=== PATIENT | male | born 1980 | race Caucasian/White ===

== ENCOUNTER 2016-05-05 12:44 | Emergency (ER) | payer MEDICAID ==
[2016-05-05 13:00] VITALS: BP 154/95
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
[2016-05-05] MEDS ORDERED: DEXAMETHASONE 10 MG/ML VIAL ONE (13:27)
[2016-05-05] MEDS ORDERED: HYDROcod/ACETAM 5/325 MG TABLET ONE (13:27)
[2016-05-05] MEDS: DEXAMETHASONE 10 MG/ML VIAL PO STA (13:29)
[2016-05-05] MEDS: HYDROcod/ACETAM 5/325 MG TABLET PO STA (13:29)
[2016-05-05 13:34] LABS: RAPID STREP SCREEN REAGENT QC YELLOW (YELLOW)
== END 2016-05-05 13:44 | disposition home or self-care (01) ==
LOC: ED 12:44
DX: B34.9 Viral infection, unspecified (principal); I10 Essential (primary) hypertension; J45.909 Unspecified asthma, uncomplicated; F17.200 Nicotine dependence, unspecified, uncomplicated
CPT/HCPCS: 87070; 87430; 99283

== ENCOUNTER 2016-07-22 20:45 | Emergency (ER) | payer MEDICAID ==
[2016-07-22] MEDS ORDERED: CLINDAMYCIN 150 MG CAPSULE PO STA (21:06)
[2016-07-22] MEDS ORDERED: CLINDAMYCIN 150 MG CAPSULE PO ONE (21:14)
== END 2016-07-22 21:19 | disposition home or self-care (01) ==
DX: A69.1 Other Vincent's infections (principal); I10 Essential (primary) hypertension; F17.200 Nicotine dependence, unspecified, uncomplicated
CPT/HCPCS: 99283; A9270

== ENCOUNTER 2016-10-31 13:19 | Emergency (ER) | payer MEDICAID ==
[2016-10-31 13:25] VITALS: BP 127/81
[2016-10-31] MEDS ORDERED: CLINDAMYCIN 150 MG CAPSULE PO STA (13:33)
[2016-10-31] MEDS ORDERED: traMADol 50 MG TABLET PO STA (13:35)
[2016-10-31] MEDS ORDERED: CLINDAMYCIN 150 MG CAPSULE PO ONE (13:42)
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
== END 2016-10-31 14:00 | disposition home or self-care (01) ==
LOC: ED 13:19
DX: K04.7 Periapical abscess without sinus (principal); K02.9 Dental caries, unspecified; I10 Essential (primary) hypertension; F17.200 Nicotine dependence, unspecified, uncomplicated; Z59.0 Homelessness
CPT/HCPCS: 99283; A9270

== ENCOUNTER 2016-11-14 13:46 | Outpatient (CLI) | payer MEDICAID | END 2016-11-14 13:47 | disposition critical access hospital (66) | LOC: EMS 13:46 | PROVIDERS: ATTEND Surgery | DX: R11.0 Nausea (principal) | CPT/HCPCS: A0425; A0427 ==

== ENCOUNTER 2016-11-14 14:14 | Emergency (ER) | payer MEDICAID ==
[2016-11-14] MEDS ORDERED: amLODIPine 5 MG TABLET PO STA (14:30)
[2016-11-14] MEDS ORDERED: SODIUM CHLORIDE 0.9% 1,000 ML IV ONE ×2 (14:30→15:02)
[2016-11-14] MEDS ORDERED: amLODIPine 5 MG TABLET ONE (14:32)
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
[2016-11-14] MEDS ORDERED: LORazepam 2 MG/ML SYRINGE IVP STA (15:00)
[2016-11-14] MEDS ORDERED: LORazepam 2 MG/ML SYRINGE ONE (15:03)
[2016-11-14 15:16] LABS: BILIRUBIN,URINE NEGATIVE (NEGATIVE); UA w/ MICROSCOPIC CHARGE YES
[2016-11-14 15:18] LABS: UR CULTURE IF IND NOT INDICATED; WBC,URINE 0-3 /HPF (0-3)
[2016-11-14 15:38] LABS: BASOPHILS # (AUTO) 0.1 10^3/uL (0.0-0.1); BASOPHILS % (AUTO) 1.1 %; EOSINOPHILS % (AUTO) 0.2 %; HCT - HEMATOCRIT 48.6 % (42.0-52.0); HGB - HEMOGLOBIN 16.7 g/dL (14.0-18.0); LYMPHOCYTES # (AUTO) 0.6 10^3/uL (1.5-3.5); MEAN CORPUSCULAR HEMOGLOBIN 34.6 pg (27.0-31.0); MEAN CORPUSCULAR HGB CONC 34.4 g/dL (32.0-36.0); MEAN CORPUSCULAR VOLUME 100.6 fL (80.0-94.0); MEAN PLATELET VOLUME 9.7 fL (7.4-11.4); MONOCYTES # (AUTO) 0.6 10^3/uL (0.0-1.0); NEUTROPHILS # (AUTO) 4.3 10^3/uL (1.5-6.6); NEUTROPHILS % (AUTO) 76.7 %; RED BLOOD COUNT 4.83 10^6/uL (4.70-6.10); RED CELL DISTRIBUTION WIDTH 13.3 % (12.0-15.0); UNCORRECTED WHITE BLOOD COUNT 5.7 x10^3/uL; WHITE BLOOD COUNT 5.7 x10^3/uL (4.8-10.8)
[2016-11-14 15:48] LABS: ALBUMIN/GLOBULIN RATIO 0.9 (1.0-2.2); BILIRUBIN,TOTAL 3.7 mg/dL (0.2-1.0); BUN - BLOOD UREA NITROGEN 5 mg/dL (6-20); CALCIUM 9.1 mg/dL (8.5-10.3); CARBON DIOXIDE - CO2 25 mmol/L (21-32); CHLORIDE 100 mmol/L (101-111); CREATININE 0.5 mg/dL (0.6-1.2); GFR - MDRD 190 (>89); GLUCOSE 120 mg/dL (70-100); LIPASE 77 U/L (22-51); POTASSIUM 3.6 mmol/L (3.5-5.0); SALICYLATE < 6.0 mg/dL; SODIUM 138 mmol/L (135-145); TOTAL PROTEIN 7.6 g/dL (6.7-8.2)
[2016-11-14 16:03] LABS: ACETAMINOPHEN < 10 ug/mL (10-30)
[2016-11-14 16:19] VITALS: BP 166/91
== END 2016-11-14 16:33 | disposition home or self-care (01) ==
LOC: EDUNIT# → ED 14:14
DX: F41.9 Anxiety disorder, unspecified (principal); E86.0 Dehydration; I10 Essential (primary) hypertension; I38 Endocarditis, valve unspecified; F17.200 Nicotine dependence, unspecified, uncomplicated; I49.3 Ventricular premature depolarization; I45.81 Long QT syndrome
CPT/HCPCS: 36415; 80053; 80306; 80307; 80320; 80329; 81001; 83690; 85025; 93005; 96361; 96374; 99284; A9270; J2060; 81003; 87086

== ENCOUNTER 2016-11-16 20:09 | Outpatient (CLI) | payer MEDICAID | END 2016-11-16 20:10 | disposition critical access hospital (66) | LOC: EMS 20:09 | PROVIDERS: ATTEND Surgery | DX: R56.9 Unspecified convulsions (principal) | CPT/HCPCS: A0425; A0427 ==

== ENCOUNTER 2016-11-16 20:31 | Emergency (ER) | payer MEDICAID ==
[2016-11-16 21:15] LABS: BASOPHILS # (AUTO) 0.1 10^3/uL (0.0-0.1); BASOPHILS % (AUTO) 0.9 %; EOSINOPHILS # (AUTO) 0.1 10^3/uL (0.0-0.7); EOSINOPHILS % (AUTO) 0.8 %; HCT - HEMATOCRIT 44.2 % (42.0-52.0); HGB - HEMOGLOBIN 15.2 g/dL (14.0-18.0); LYMPHOCYTES # (AUTO) 1.1 10^3/uL (1.5-3.5); LYMPHOCYTES % (AUTO) 15.7 %; MEAN CORPUSCULAR HEMOGLOBIN 34.9 pg (27.0-31.0); MEAN CORPUSCULAR HGB CONC 34.4 g/dL (32.0-36.0); MEAN CORPUSCULAR VOLUME 101.4 fL (80.0-94.0); MEAN PLATELET VOLUME 10.2 fL (7.4-11.4); MONOCYTES # (AUTO) 0.8 10^3/uL (0.0-1.0); MONOCYTES % (AUTO) 11.4 %; NEUTROPHILS # (AUTO) 4.9 10^3/uL (1.5-6.6); NEUTROPHILS % (AUTO) 71.2 %; NUCLEATED RED BLOOD CELLS AUTO 0.1 /100WBC; RED BLOOD COUNT 4.36 10^6/uL (4.70-6.10); RED CELL DISTRIBUTION WIDTH 13.4 % (12.0-15.0); UNCORRECTED WHITE BLOOD COUNT 6.9 x10^3/uL; WHITE BLOOD COUNT 6.9 x10^3/uL (4.8-10.8)
[2016-11-16] MEDS ORDERED: SODIUM CHLORIDE 0.9% 1,000 ML IV ONE (21:29)
[2016-11-16 21:48] LABS: ALBUMIN/GLOBULIN RATIO 0.9 (1.0-2.2); BILIRUBIN,TOTAL 3.3 mg/dL (0.2-1.0); CALCIUM 8.3 mg/dL (8.5-10.3); CREATININE 0.6 mg/dL (0.6-1.2); PHOSPHORUS 3.2 mg/dL (2.5-4.6); POTASSIUM 3.2 mmol/L (3.5-5.0); TOTAL PROTEIN 6.8 g/dL (6.7-8.2)
[2016-11-16] MEDS ORDERED: MAGNESIUM SULFATE 2 GRAM 50 ML IV ONE ×2 (21:54→22:18)
--- NOTE | 2016-11-16 22:12 | CT Preliminary Report ---
Exam: CT Head W/O IMPRESSION: 1. No CT evidence of acute intracranial abnormality, specifically no CT evidence of acute infarct, in tracranial hemorrhage, mass effect, midline shift, or hydrocephalus. 2. Right parietal scalp soft tissue hematoma with no underlying fracture. [facility] SITE ID: [id number]
--- NOTE | 2016-11-16 22:14 | CT Report ---
EXAM: CT HEAD EXAM DATE: 11/16/2016 09:44 PM. CLINICAL HISTORY: Fall, seizure post fall. COMPARISON: None. TECHNIQUE: Multiaxial CT images were obtained from the foramen magnum to the vertex. IV contrast: Non e. Reformats: Coronal. In accordance with CT protocol optimization, one or more of the following dose reduction techniques w ere utilized for this exam: automated exposure control, adjustment of mA and/or KV based on patient s ize, or use of iterative reconstructive technique. FINDINGS: Parenchyma: No intraparenchymal hemorrhage. No evidence of mass, midline shift, or CT findings of inf arction. Littlejohn-white differentiation is distinct. Extraaxial Spaces: Normal for age. No subdural or epidural collections identified. Ventricles: Normal in size and position. Sinuses: Moderate mucosal thickening left maxillary sinus. Imaged paranasal sinuses otherwise, orbits , and mastoids show no significant abnormality. Bones: No evidence of fracture or calvarial defect. Other: Right parietal scalp soft tissue hematoma with no underlying fracture. IMPRESSION: 1. No CT evidence of acute intracranial abnormality, specifically no CT evidence of acute infarct, in tracranial hemorrhage, mass effect, midline shift, or hydrocephalus. 2. Right parietal scalp soft tissue hematoma with no underlying fracture. [facility] Referring Provider Line: [phone] SITE ID: [id number]
[2016-11-16 23:05] VITALS: BP 149/79
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
== END 2016-11-16 23:21 | disposition left against medical advice (07) ==
LOC: EDUNIT# → ED 20:31
DX: R55 Syncope and collapse (principal); Z53.29 Procedure and treatment not carried out because of patient's decision for other reasons; I45.19 Other right bundle-branch block; R94.31 Abnormal electrocardiogram [ECG] [EKG]; I10 Essential (primary) hypertension; I38 Endocarditis, valve unspecified; J45.909 Unspecified asthma, uncomplicated; F17.200 Nicotine dependence, unspecified, uncomplicated
CPT/HCPCS: 36415; 70450; 80053; 83690; 83735; 83880; 84100; 84484; 85025; 93005; 96374; 99283; 99285

== ENCOUNTER 2016-11-17 01:17 | Outpatient (CLI) | payer MEDICAID | END 2016-11-17 01:18 | disposition critical access hospital (66) | LOC: EMS 01:17 | PROVIDERS: ATTEND Surgery | DX: R56.9 Unspecified convulsions (principal) | CPT/HCPCS: A0425; A0429 ==

== ENCOUNTER 2016-11-17 01:47 | Inpatient (IN) | payer MEDICAID ==
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
[2016-11-17] MEDS ORDERED: ACETAMINOPHEN 325 MG TABLET PO PRN (02:30)
[2016-11-17] MEDS ORDERED: HYDROcod/ACETAM 5/325 MG TABLET PO PRN (02:30)
[2016-11-17] MEDS ORDERED: HYDROcod/ACETAM 10 MG/325 MG TABLET PO PRN (02:30)
[2016-11-17] MEDS ORDERED: ONDANSETRON 4 MG/2 ML VIAL IVP PRN (02:30)
[2016-11-17] MEDS ORDERED: PROCHLORPERAZINE 10 MG/2 ML VIAL IVP PRN (02:30)
[2016-11-17] MEDS ORDERED: MAGNESIUM SULFATE 2 GRAM 50 ML IV SCH (03:30)
[2016-11-17] MEDS: levETIRAcetam 250 MG TABLET PO SCH ×2 (04:06→10:23)
[2016-11-17] MEDS: SODIUM CHLORIDE FLUSH 0.9% 10 ML SYRINGE IVP PRN ×2 (04:07→11:03)
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
[2016-11-17] MEDS ORDERED: PANTOPRAZOLE 40 MG TABLET PO SCH (07:00)
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
--- NOTE | 2016-11-17 08:59 | Ultrasound Preliminary Report ---
Exam: US Abdomen Complete IMPRESSION: 1. Limited exam due to patient agitation. 2. Echogenic liver may indicate fatty infiltration or intrinsic liver disease. 3. No other gross abnormality identified. [facility] SITE ID: [id number]
--- NOTE | 2016-11-17 09:01 | Ultrasound Report ---
EXAM: ABDOMEN ULTRASOUND EXAM DATE: 11/17/2016 07:44 AM. CLINICAL HISTORY: Elevated bili history of liver disease . COMPARISON: Abdominal ultrasound dated 12/14/2015. TECHNIQUE: Real-time scanning was performed with static images obtained. FINDINGS: Technically limited exam due to patient agitation. Liver: Appears echogenic. It measures 16.5 cm in length. Main portal vein flow: Hepatopetal. Gallbladder: Mildly contracted. Wall thickness measures 2.8 mm. No stones or sonographic Mirza's sig n. Biliary System: Common bile duct measures 4.1 mm. No intrahepatic or extrahepatic ductal dilatation. Pancreas: Not well seen. Kidneys: Right: 11.2 cm longitudinally. No gross abnormality identified. Left: 12.2 cm longitudinally. Very limited imaging due to patient agitation. No gross abnormality dimple ntified. Spleen: 11.2 cm. Very limited imaging due to patient agitation. No gross abnormality identified. Aorta: Unremarkable. IMPRESSION: 1. Limited exam due to patient agitation. 2. Echogenic liver may indicate fatty infiltration or intrinsic liver disease. 3. No other gross abnormality identified. [facility] Referring Provider Line: [phone] SITE ID: [id number]
[2016-11-17] MEDS: amLODIPine 5 MG TABLET PO SCH (10:24)
[2016-11-17 10:26] LABS: BASOPHILS % (AUTO) 0.7 %; EOSINOPHILS # (AUTO) 0.1 10^3/uL (0.0-0.7); EOSINOPHILS % (AUTO) 1.6 %; HCT - HEMATOCRIT 42.6 % (42.0-52.0); HGB - HEMOGLOBIN 14.6 g/dL (14.0-18.0); LYMPHOCYTES # (AUTO) 1.1 10^3/uL (1.5-3.5); LYMPHOCYTES % (AUTO) 24.5 %; MEAN CORPUSCULAR HEMOGLOBIN 34.7 pg (27.0-31.0); MEAN CORPUSCULAR HGB CONC 34.2 g/dL (32.0-36.0); MEAN CORPUSCULAR VOLUME 101.3 fL (80.0-94.0); MONOCYTES # (AUTO) 0.6 10^3/uL (0.0-1.0); MONOCYTES % (AUTO) 13.7 %; NEUTROPHILS # (AUTO) 2.6 10^3/uL (1.5-6.6); NEUTROPHILS % (AUTO) 59.5 %; RED CELL DISTRIBUTION WIDTH 13.3 % (12.0-15.0); UNCORRECTED WHITE BLOOD COUNT 4.4 x10^3/uL; WHITE BLOOD COUNT 4.4 x10^3/uL (4.8-10.8)
[2016-11-17] MEDS: POLYETHYLENE GLYCOL 3350 17 GM PACKET PO SCH (10:27)
[2016-11-17 10:32] LABS: INR 1.2 (0.8-1.2); PT - PROTHROMBIN TIME 13.3 secs (9.9-12.6)
[2016-11-17 10:35] LABS: ALBUMIN/GLOBULIN RATIO 0.8 (1.0-2.2); BILIRUBIN,TOTAL 3.3 mg/dL (0.2-1.0); CALCIUM 8.4 mg/dL (8.5-10.3); CREATININE 0.5 mg/dL (0.6-1.2); MAGNESIUM 1.7 mg/dL (1.7-2.8); PHOSPHORUS 3.6 mg/dL (2.5-4.6); POTASSIUM 3.1 mmol/L (3.5-5.0); TOTAL PROTEIN 6.3 g/dL (6.7-8.2)
[2016-11-17] MEDS ORDERED: LORazepam 2 MG/ML SYRINGE IVP PRN ×2 (10:43→18:12)
[2016-11-17 10:44] LABS: IRON 137 ug/dL (45-182); TOTAL IRON BINDING CAPACITY 259 ug/dL (250-450); TRANSFERRIN 185 mg/dL (180-329)
[2016-11-17] MEDS: METOPROLOL TARTRATE 25 MG TABLET PO SCH (10:57)
[2016-11-17] MEDS: LORazepam 2 MG/ML SYRINGE IVP PRN ×10 (10:58→19:36)
[2016-11-17 11:01] LABS: FOLATE 9.68 ng/mL (5.90 - >24.8)
[2016-11-17] MEDS: SODIUM CHLORIDE FLUSH 0.9% 10 ML SYRINGE IVP SCH ×3 (11:27→23:03)
[2016-11-17] MEDS ORDERED: POTASSIUM CHLORIDE 20 MEQ/15 ML UDC PO SCH (12:00)
[2016-11-17] MEDS: MULTIVITAMIN 10 ML, THIAMINE INJ 100 MG, FOLIC ACID INJ 1 MG in SODIUM CHLORIDE 0.9% 1,... IV SCH (12:44)
--- NOTE | 2016-11-17 13:19 | MRI Preliminary Report ---
Exam: MRI Brain W/O Impression: 1. Motion limited study. 2. However, no acute intracranial pathology is demonstrated. In particular, there is no evidence of i nfarction, hemorrhage or space-occupying mass lesion. 3. In addition, no obvious, epileptogenic focus has been identified on this brain MRI. SITE ID: [id number]
--- NOTE | 2016-11-17 13:35 | MRI Report ---
MRI BRAIN WITHOUT CONTRAST INDICATION: 36-year-old male with new onset seizures. Please assess. TECHNIQUE: 1. T1 sagittal. 2. STIR and T2 FLAIR coronal. 3. Axial T1 MP RAGE, FLAIR, T2, T2* and DWI. Comparison: Head CT 11/16/2016. FINDINGS: The patient was not able to hold still for this examination. There is image degradation from patient motion on most sequences. This decreases the diagnostic quality of the study. Again demonstrated, is generalized prominence of the cerebral cortical sulci, unchanged. There is mil d prominence of the third and lateral ventricles, stable. There is no discordance between the degree of ventriculomegaly and the amount of cortical sulcal dilatation to suggest the possibility of hydroc ephalus. The axial and coronal T2 FLAIR sequences are degraded by patient motion. Grossly, signal intensity of cortex and white matter appears normal. The coronal STIR sequence is also degraded by patient motion. However, by visual inspection, grossly the hippocampi appear symmetric in size. Hippocampal architecture is not well assessed on the sequenc es provided, however, no abnormal FLAIR hyperintensity is identified in either hippocampus to suggest the presence of gliosis. Therefore, no imaging findings concerning for mesial temporal sclerosis. No evidence of focal cortical dysplasia or keenan matter heterotopia on the T1 MP RAGE axial sequence. There appear to be flow voids for the main intracranial arteries. The DWI sequence is of relatively g ood, diagnostic quality. No abnormal diffusion restriction is demonstrated. No evidence of acute or chronic hemorrhage on T2* GRE sequence. No abnormal extra-axial fluid collection. No mass-effect or midline shift. Limited assessment of the pituitary and parasellar region reveals no obvious pathology. In particular , no evidence of hypothalamic mass lesion. Very limited assessment of the orbits reveals no gross pathology. There is circumferential mucosal thickening in the left maxillary sinus with a prominent air-fluid le ifeoma. Mucosal thickening is seen scattered throughout the ethmoid air cells. Grossly, the paranasal si nuses are otherwise clear. Marrow signal intensity in the regional skeletal structures is unremarkable. IMPRESSION: 1. Motion-limited study. 2. However, no acute intracranial pathology is demonstrated. In particular, there is no evidence of i nfarction, hemorrhage or space-occupying mass lesion. 3. In addition, no obvious, epileptogenic focus has been identified on this unenhanced brain MRI. Referring Provider Line: [phone] SITE ID: [id number]
[2016-11-17] MEDS: NICOTINE 21 MG PATCH TOP SCH (13:52)
[2016-11-17] MEDS: POTASSIUM CHLORIDE 20 MEQ/15 ML UDC PO SCH (14:06)
[2016-11-17] MEDS ORDERED: MAGNESIUM SULFATE 2 GRAM 50 ML IV ONE (19:01)
[2016-11-17] MEDS ORDERED: HALOPERIDOL 5 MG/ML VIAL IM ONE (19:01)
[2016-11-17] MEDS ORDERED: diphenhydrAMINE INJ 50 MG/ML VIAL IVP PRN (19:03)
[2016-11-17] MEDS ORDERED: PROMETHAZINE INJ 25 MG in SODIUM CHLORIDE 0.9% 50 ML IV PRN (19:04)
[2016-11-17] MEDS ORDERED: HALOPERIDOL 5 MG/ML VIAL IM SCH (19:22)
[2016-11-17] MEDS ORDERED: SODIUM CHLORIDE 0.9% 1,000 ML IV ONE (20:01)
[2016-11-17] MEDS ORDERED: LORazepam 2 MG/ML SYRINGE IVP STA ×2 (20:02→20:06)
[2016-11-17] MEDS: DEXMEDETOMIDINE 400 MCG/100 ML 100 ML IV PRN (20:15)
[2016-11-17] MEDS ORDERED: HALOPERIDOL 5 MG/ML VIAL IM STA (20:17)
[2016-11-17] MEDS ORDERED: LORazepam 100MG/100ML 100 ML IV SCH (21:00)
[2016-11-17] MEDS ORDERED: SODIUM CHLORIDE 0.9% 1,000 ML IV SCH (23:00)
[2016-11-17] MEDS: NS W/20 MEQ KCL 1,000 ML IV SCH (23:02)
[2016-11-18] MEDS: HALOPERIDOL 5 MG/ML VIAL IM SCH ×2 (00:36→05:11)
[2016-11-18] MEDS ORDERED: HALOPERIDOL 5 MG/ML VIAL IM SCH (05:06)
[2016-11-18] MEDS: LORazepam 2 MG/ML SYRINGE IVP PRN ×5 (05:10→23:11)
[2016-11-18] MEDS ORDERED: LORazepam 2 MG/ML SYRINGE IVP STA (05:36)
[2016-11-18] MEDS: SODIUM CHLORIDE FLUSH 0.9% 10 ML SYRINGE IVP SCH ×3 (06:04→21:52)
[2016-11-18] MEDS: PANTOPRAZOLE 40 MG VIAL IVP SCH (06:04)
[2016-11-18] MEDS: DEXMEDETOMIDINE 400 MCG/100 ML 100 ML IV PRN ×4 (06:20→22:11)
[2016-11-18] MEDS ORDERED: LORazepam 2 MG/ML SYRINGE IVP SCH (06:27)
[2016-11-18] MEDS: NS W/20 MEQ KCL 1,000 ML IV SCH (07:03)
[2016-11-18 08:03] LABS: BASOPHILS % (AUTO) 0.5 %; EOSINOPHILS # (AUTO) 0.1 10^3/uL (0.0-0.7); EOSINOPHILS % (AUTO) 1.4 %; HCT - HEMATOCRIT 41.6 % (42.0-52.0); HGB - HEMOGLOBIN 14.3 g/dL (14.0-18.0); LYMPHOCYTES # (AUTO) 0.7 10^3/uL (1.5-3.5); LYMPHOCYTES % (AUTO) 15.5 %; MEAN CORPUSCULAR HEMOGLOBIN 34.8 pg (27.0-31.0); MEAN CORPUSCULAR HGB CONC 34.4 g/dL (32.0-36.0); MEAN CORPUSCULAR VOLUME 101.3 fL (80.0-94.0); MEAN PLATELET VOLUME 9.5 fL (7.4-11.4); MONOCYTES # (AUTO) 0.4 10^3/uL (0.0-1.0); MONOCYTES % (AUTO) 8.1 %; NEUTROPHILS # (AUTO) 3.5 10^3/uL (1.5-6.6); NEUTROPHILS % (AUTO) 74.5 %; NUCLEATED RED BLOOD CELLS AUTO 0.1 /100WBC; RED BLOOD COUNT 4.11 10^6/uL (4.70-6.10); RED CELL DISTRIBUTION WIDTH 13.2 % (12.0-15.0); UNCORRECTED WHITE BLOOD COUNT 4.7 x10^3/uL; WHITE BLOOD COUNT 4.7 x10^3/uL (4.8-10.8)
[2016-11-18 08:14] LABS: INR 1.2 (0.8-1.2)
[2016-11-18 08:21] LABS: ALBUMIN/GLOBULIN RATIO 0.8 (1.0-2.2); BILIRUBIN,TOTAL 2.3 mg/dL (0.2-1.0); CALCIUM 8.5 mg/dL (8.5-10.3); CREATININE 0.4 mg/dL (0.6-1.2); MAGNESIUM 1.4 mg/dL (1.7-2.8); POTASSIUM 3.3 mmol/L (3.5-5.0); TOTAL PROTEIN 6.2 g/dL (6.7-8.2)
[2016-11-18] MEDS: POTASSIUM CHLORIDE 20 MEQ/15 ML UDC PO SCH (08:46)
[2016-11-18] MEDS: ENOXAPARIN 30 MG/0.3 ML SYRINGE SUBQ SCH (09:10)
[2016-11-18] MEDS: NICOTINE 21 MG PATCH TOP SCH (09:12)
[2016-11-18] MEDS: amLODIPine 5 MG TABLET PO SCH (09:15)
[2016-11-18] MEDS: METOPROLOL TARTRATE 25 MG TABLET PO SCH (09:15)
[2016-11-18] MEDS: levETIRAcetam INJ 500 MG in SODIUM CHLORIDE 0.9% 100ML 100 ML IV SCH ×2 (09:17→21:48)
[2016-11-18] MEDS: MULTIVITAMIN 10 ML, THIAMINE INJ 100 MG, FOLIC ACID INJ 1 MG in SODIUM CHLORIDE 0.9% 1,... IV SCH (09:32)
[2016-11-18] MEDS: POLYETHYLENE GLYCOL 3350 17 GM PACKET PO SCH (09:46)
[2016-11-18] MEDS: SODIUM CHLORIDE FLUSH 0.9% 10 ML SYRINGE IVP PRN ×2 (09:54→18:22)
--- NOTE | 2016-11-18 12:01 | PROVIDER PROGRESS NOTE ---
Subjective - Prog Note Date Prog Note Date: 11/18/16 Prog Note Time: 12:01 - Subjective Subjective: yesterday he became increasingly angry and agitated. he wanted IV off to go to bathroom. wanted to leave room to smoke. 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 but by evening, he was screaming, hitting, and very unstable on his feet as he attempted to ambulate. CIWA score mid 20's. Needed haldol x2 then precedex drip so is in ICU since yesterday evening. overnight is has been stable vitals except for high BP. This morning he is now on my service from the [employer] [facility]. Current Medications - Current Medications Current Medications: Active Medications Acetaminophen (Tylenol) 650 mg PO Q4HR PRN PRN Reason: Pain 1 to 4 Last Admin: 11/17/16 12:34 Dose: 650 mg Acetaminophen/Hydrocodone Bitart (Howard 5/325) 1 tab PO Q4HR PRN PRN Reason: Pain 5 to 7 Last Admin: 11/17/16 13:52 Dose: 1 tab Acetaminophen/Hydrocodone Bitart (Howard 10 Mg/325 Mg) 1 tab PO Q4HR PRN PRN Reason: Pain 8 to 10 Amlodipine Besylate (Norvasc) 10 mg PO DAILY [facility] Last Admin: 11/18/16 09:15 Dose: Not Given Diphenhydramine HCl (Benadryl Inj) 25 mg IVP Q6H PRN PRN Reason: Allergy Symptoms Enoxaparin Sodium (Lovenox) 30 mg SUBQ DAILY [facility] Last Admin: 11/18/16 09:10 Dose: 30 mg Hydralazine HCl (Apresoline Inj) 10 mg IVP TID [facility] Multivitamins 10 ml/ Thiamine HCl 100 mg/ Folic Acid 1 mg/Sodium Chloride 1, 011.2 mls @ 100 mls/hr IV DAILY [facility] Last Admin: 11/18/16 09:32 Dose: 100 mls/hr Promethazine HCl 25 mg/ Sodium (Chloride) 51 mls @ 100 mls/hr IV Q6H PRN PRN Reason: Nausea / Vomiting Dexmedetomidine/Sodium Chloride (Precedex Premix) 100 mls @ 5.963 mls/hr IV .[id number] PRN; Protocol; 0.3 MCG/KG/HR PRN Reason: Agitation Last Admin: 11/18/16 06:20 Dose: 15.9 mls/hr Levetiracetam 500 mg/ Sodium (Chloride) 105 mls @ 400 mls/hr IV BID [facility] Last Admin: 11/18/16 09:17 Dose: 400 mls/hr Potassium Chloride/Sodium Chloride (Normal Saline 0.9% W/20 Meq Kcl) 1,000 mls @ 125 mls/hr IV .Q8H [facility] Last Admin: 11/18/16 07:03 Dose: 125 mls/hr Lorazepam (Ativan Inj) 1 mg IVP Q30M PRN; Protocol PRN Reason: CIWA > 8 Last Admin: 11/18/16 06:07 Dose: 1 mg Lorazepam (Ativan Inj) 0.5 mg IVP Q2HR PRN PRN Reason: Anxiety Lorazepam (Ativan Inj) 0.5 mg IVP Q2HR PRN PRN Reason: Anxiety Metoprolol Tartrate (Lopressor) 25 mg PO DAILY [facility] Last Admin: 11/18/16 09:15 Dose: Not Given Nicotine (Nicoderm) 1 patch TOP DAILY [facility] Last Admin: 11/18/16 09:12 Dose: 1 patch Ondansetron HCl (Zofran Inj) 4 mg IVP Q6HR PRN PRN Reason: Nausea / Vomiting Pantoprazole Sodium (Protonix) 40 mg IVP QDAC [facility] Last Admin: 11/18/16 06:04 Dose: 40 mg Polyethylene Glycol (Miralax) 17 gm PO DAILY [facility] Last Admin: 11/18/16 09:46 Dose: Not Given Potassium Chloride () 20 meq PO DAILYWM [facility] Last Admin: 11/18/16 08:46 Dose: Not Given Prochlorperazine Edisylate (Compazine Inj) 10 mg IVP Q6HR PRN PRN Reason: Nausea / Vomiting Sodium Chloride (Normal Saline Flush 0.9%) 10 ml IVP PRN PRN PRN Reason: NEEDED PER PROVIDER ORDERS Last Admin: 11/18/16 09:54 Dose: 10 ml Sodium Chloride (Normal Saline Flush 0.9%) 10 ml IVP Q8HR [facility] Last Admin: 11/18/16 06:04 Dose: 10 ml Metoprolol Tartrate 25 mg PO DAILY 10/31/16 Omeprazole 20 mg PO DAILY 10/31/16 Objective - Vital Signs/Intake & Output Reviewed Vital Signs: Yes Vital Signs: Vital Signs Pulse Resp BP Pulse Ox 11/18/16 11:00 67 19 161/102 H 93 11/18/16 10:00 60 21 161/99 H 94 11/18/16 08:59 62 22 160/98 H 94 Intake & Output: Intake & Output 11/15/16 11/16/16 11/17/16 11/18/16 23:59 23:59 23:59 23:59 Intake Total 1044 1880 Output Total 1400 2090 Balance -356 -210 - Objective General Appearance: positive: No acute distress, Other (sedated. hilliard faced, dishelveled sparse dutta mustache white male with poor poor dentition) Eyes Bilateral: positive: PERRL Neck: positive: No JVD, Lymphadenopathy (R) (shotty), Lymphadenopathy (L) ( shotty). negative: Stiff neck Respiratory: positive: Chest non-tender. negative: Wheezes, Rales, Rhonchi Cardiovascular: positive: Regular rate & rhythm, No murmur, Gallop/S4, Friction rub Abdomen: positive: Non-tender, No organomegaly, Nml bowel sounds, No distention Skin: positive: Warm, Dry Extremities: positive: Full ROM (passive), No pedal edema. negative: Joint swelling Neurologic/Psychiatric: positive: Other (precedex drip, toes downgoing and does withdraw feet with stimulation of soles) - Lab Results Fish Bones: 11/18/16 07:57 11/18/16 07:57 Other Labs: Lab Results x24hrs 11/18/16 11/18/16 11/18/16 Range/Units 07:57 07:57 07:57 WBC 4.7 L (4.8-10.8) x10^3/uL RBC 4.11 L (4.70-6.10) 10^6/uL Hgb 14.3 (14.0-18.0) g/dL Hct 41.6 L (42.0-52.0) % MCV 101.3 H (80.0-94.0) fL MCH 34.8 H (27.0-31.0) pg MCHC 34.4 (32.0-36.0) g/dL RDW 13.2 (12.0-15.0) % Plt Count 98 L (130-450) 10^3/uL MPV 9.5 (7.4-11.4) fL Neut # 3.5 (1.5-6.6) 10^3/uL Lymph # 0.7 L (1.5-3.5) 10^3/uL Millard # 0.4 (0.0-1.0) 10^3/uL Eos # 0.1 (0.0-0.7) 10^3/uL Baso # 0.0 (0.0-0.1) 10^3/uL Absolute Nucleated RBC 0.00 x10^3/uL Nucleated RBCs 0.1 /100WBC PT 14.0 H (9.9-12.6) secs INR 1.2 (0.8-1.2) Sodium 136 (135-145) mmol/L Potassium 3.3 L (3.5-5.0) mmol/L Chloride 105 (101-111) mmol/L Carbon Dioxide 23 (21-32) mmol/L Anion Gap 8.0 (6-13) BUN 5 L (6-20) mg/dL Creatinine 0.4 L (0.6-1.2) mg/dL Estimated GFR (MDRD) 246 (>89) Glucose 122 H (70-100) mg/dL Calcium 8.5 (8.5-10.3) mg/dL Phosphorus 4.0 (2.5-4.6) mg/dL Magnesium 1.4 L (1.7-2.8) mg/dL Total Bilirubin 2.3 H (0.2-1.0) mg/dL AST 536 H (10-42) IU/L ALT 99 H (10-60) IU/L Alkaline Phosphatase 102 (42-121) IU/L Total Creatine Kinase (22-269) IU/L Total Protein 6.2 L (6.7-8.2) g/dL Albumin 2.8 L (3.2-5.5) g/dL Globulin 3.4 (2.1-4.2) g/dL Albumin/Globulin Ratio 0.8 L (1.0-2.2) Urine Opiates Screen (NEGATIVE) Ur Oxycodone Screen (NEGATIVE) Urine Methadone Screen (NEGATIVE) Ur Propoxyphene Screen (NEGATIVE) Ur Barbiturates Screen (NEGATIVE) Ur Tricyclics Screen (NEGATIVE) Ur Phencyclidine Scrn (NEGATIVE) Ur Amphetamine Screen (NEGATIVE) U Methamphetamines Scrn (NEGATIVE) U Benzodiazepines Scrn (NEGATIVE) Urine Cocaine Screen (NEGATIVE) U Cannabinoids Screen (NEGATIVE) 11/17/16 11/17/16 Range/Units 21:25 18:30 WBC (4.8-10.8) x10^3/uL RBC (4.70-6.10) 10^6/uL Hgb (14.0-18.0) g/dL Hct (42.0-52.0) % MCV (80.0-94.0) fL MCH (27.0-31.0) pg MCHC (32.0-36.0) g/dL RDW (12.0-15.0) % Plt Count (130-450) 10^3/uL MPV (7.4-11.4) fL Neut # (1.5-6.6) 10^3/uL Lymph # (1.5-3.5) 10^3/uL Millard # (0.0-1.0) 10^3/uL Eos # (0.0-0.7) 10^3/uL Baso # (0.0-0.1) 10^3/uL Absolute Nucleated RBC x10^3/uL Nucleated RBCs /100WBC PT (9.9-12.6) secs INR (0.8-1.2) Sodium (135-145) mmol/L Potassium (3.5-5.0) mmol/L Chloride (101-111) mmol/L Carbon Dioxide (21-32) mmol/L Anion Gap (6-13) BUN (6-20) mg/dL Creatinine (0.6-1.2) mg/dL Estimated GFR (MDRD) (>89) Glucose (70-100) mg/dL Calcium (8.5-10.3) mg/dL Phosphorus (2.5-4.6) mg/dL Magnesium (1.7-2.8) mg/dL Total Bilirubin (0.2-1.0) mg/dL AST (10-42) IU/L ALT (10-60) IU/L Alkaline Phosphatase (42-121) IU/L Total Creatine Kinase 569 H (22-269) IU/L Total Protein (6.7-8.2) g/dL Albumin (3.2-5.5) g/dL Globulin (2.1-4.2) g/dL Albumin/Globulin Ratio (1.0-2.2) Urine Opiates Screen POSITIVE H (NEGATIVE) Ur Oxycodone Screen NEGATIVE (NEGATIVE) Urine Methadone Screen NEGATIVE (NEGATIVE) Ur Propoxyphene Screen NEGATIVE (NEGATIVE) Ur Barbiturates Screen NEGATIVE (NEGATIVE) Ur Tricyclics Screen NEGATIVE (NEGATIVE) Ur Phencyclidine Scrn NEGATIVE (NEGATIVE) Ur Amphetamine Screen NEGATIVE (NEGATIVE) U Methamphetamines Scrn NEGATIVE (NEGATIVE) U Benzodiazepines Scrn POSITIVE H (NEGATIVE) Urine Cocaine Screen NEGATIVE (NEGATIVE) U Cannabinoids Screen POSITIVE H (NEGATIVE) Assessment/Plan - Problem List (1) Severe alcohol withdrawal delirium Impression: presented as 2 seizures, left AMA from ER, returned postictal from 3rd seizure. thought to be from head trauma but is alcohol abuser and is cutting back on alcohol CT head neg 11/17, MRI head negative 11/17 last night more and more agitated as above. placed in ICU Today Day #2 ICU. continue banana bags, , CIWA, precedex, ativan for 24 more hours then lighten dose to see how he does (2) Seizure due to alcohol withdrawal Impression: on [facility] IV day #2. continue. Qualifiers: Complication of substance-induced condition: with perceptual disturbance Qualified Code(s): F10.232 - Alcohol dependence with withdrawal with perceptual disturbance (3) Electrolyte abnormality Impression: with low potassium, no magnesium, low sodium. continue electrolyte replacement program (4) Alcoholic hepatitis Impression: presented with elevated LFT's and thrombocytopenia US shows fatty liver or cirrhosis, no ascites and no spenomegaly Ferritin is very high but doubt hemachromatosis since hgb is not high hepatitis panel pending Qualifiers: Ascites presence: without ascites Qualified Code(s): K70.10 - Alcoholic hepatitis without ascites (5) Syncope Impression: one episode in midst of seizures, MRI and CT as above. ECHO shows severe RV dysfunction with severe TR. the fact he has RVH makes me think this is more chronic than acute. I am wondering about PE but he was not hypoxic, not hypertensive or hypotensive , not tachycardic with his episodes yesterday. Will start lovenox and get CTA . check carotid US for h/o bruit Qualifiers: Syncope type: unspecified Qualified Code(s): R55 - Syncope and collapse (6) Nicotine dependence, cigarettes, uncomplicated Impression: nicotine patch (7) Hypertension Impression: can't take his oral meds so switch to hydralazine IV prn Qualifiers: Hypertension type: essential hypertension Qualified Code(s): I10 - Essential (primary) hypertension
[2016-11-18] MEDS ORDERED: hydrALAZINE INJ 20 MG/ML VIAL ONE (12:18)
[2016-11-18] MEDS: hydrALAZINE INJ 20 MG/ML VIAL IVP SCH ×4 (12:19→21:34)
[2016-11-18] MEDS ORDERED: MAGNESIUM SULFATE 2 GRAM 50 ML IV ONE (13:40)
--- NOTE | 2016-11-18 14:44 | Ultrasound Preliminary Report ---
Exam: US Carotid Doppler Complete IMPRESSION: No hemodynamically significant stenosis or significant atherosclerotic plaque within the right carotid. Antegrade right vertebral artery. Patient declined imaging of the left carotid. Validated velocity measurements with angiographic measurements and velocity criteria are extrapolated from diameter data as defined by the Society of Radiologists in Ultrasound Consensus Conference Radi ology 2003; 229;340-346. [facility] SITE ID: [id number]
--- NOTE | 2016-11-18 15:31 | Ultrasound Report ---
EXAM: CAROTID DOPPLER ULTRASOUND EXAM DATE: 11/18/2016 02:14 PM. CLINICAL HISTORY: Syncope. COMPARISON: None. TECHNIQUE: Real-time sonographic vascular imaging was performed by the electrical designer drafter through the [employer] arterial system with a linear transducer utilizing color-flow, Doppler flow and spectral analysis. Multiple pharmaceutical service representative static images were saved for review. FINDINGS: No hemodynamically significant stenosis right carotid artery and no significant atheroscler otic burden. The patient declined imaging of the left carotid. Right: RCCA Prox: PSV 72 cm/sec. RCCA Dist: PSV 59 cm/sec, EDV 12 cm/sec. RECA: PSV 56 cm/sec. R Bulb: PSV 45 cm/sec, EDV 9 cm/sec, ICA/CCA ratio 0.76, degree of stenosis <50% %, plaque estimate < 50%. NANDA Prox: PSV 28 cm/sec, EDV 11 cm/sec, ICA/CCA ratio 0.47, degree of stenosis <50% %, plaque estim ate <50% %. NANDA Mid: PSV 43 cm/sec, EDV 15 cm/sec, ICA/CCA ratio 0.73, degree of stenosis <50% %, plaque estimat e <50% %. NANDA Dist: PSV 72 cm/sec, EDV 22 cm/sec, ICA/CCA ratio 1.22, degree of stenosis <50% %, plaque estim ate <50% %. RVA: PSV 47 cm/sec. RVA flow direction: Antegrade. Left: Patient declined. Other: None. IMPRESSION: No hemodynamically significant stenosis or significant atherosclerotic plaque within the right carotid. Antegrade right vertebral artery. Patient declined imaging of the left carotid. Validated velocity measurements with angiographic measurements and velocity criteria are extrapolated from diameter data as defined by the Society of Radiologists in Ultrasound Consensus Conference Radi ology 2003; 229;340-346. [facility] Referring Provider Line: [phone] SITE ID: [id number]
[2016-11-18] MEDS ORDERED: IOPAMIDOL-300 100 ML VIAL IVP ONE (15:48)
--- NOTE | 2016-11-18 16:33 | CT Preliminary Report ---
Exam: CT Chest Angio (PE) IMPRESSION: 1. No evidence of pulmonary embolus. 2. 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 See shruthien ts above. 3. Mild bronchial wall thickening with minimal peribronchial air space disease in the left lower lobe , possibly bronchitis/early bronchopneumonia. [facility] SITE ID: [id number]
--- NOTE | 2016-11-18 16:36 | CT Report ---
EXAM: CT ANGIOGRAM CHEST EXAM DATE: 11/18/2016 03:53 PM. CLINICAL HISTORY: Echocardiogram with severe right ventricular dysfunction. COMPARISON: None. TECHNIQUE: Routine helical imaging was performed through the chest in the pulmonary arterial phase. I V Contrast: 100 cc [id number]. Reconstructions: Coronal 3-D MIP reconstructions.Sagittal and coronal. In accordance with CT protocol optimization, one or more of the following dose reduction techniques w ere utilized for this exam: automated exposure control, adjustment of mA and/or KV based on patient s ize, or use of iterative reconstructive technique. FINDINGS: Pulmonary Arteries: Diagnostic quality: Adequate through the segmental arteries. No evidence for acute or chronic pulmona ry emboli. Lungs/Pleura: No pleural effusion or pneumothorax. Mild bronchial wall thickening with slight peribro nchovascular air space disease within the left lower lobe. 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 Appearance is consistent with corrected howell sposition of the great vessels. The pulmonary artery arises from the congenital left ventricle with s uperior and inferior vena cava draining to a congenital left atrium. Aorta arises from the congenital right ventricle with associated hypertrophy of the right ventricular chamber. Pulmonary veins drain into the congenital right atrium. No enlarged mediastinal lymph nodes. Aortic arch is left sided with normal appearance of the proximal great vessels. Upper Abdomen: Unremarkable. Other: None. IMPRESSION: 1. No evidence of pulmonary embolus. 2. 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 See commen ts above. 3. Mild bronchial wall thickening with minimal peribronchial air space disease in the left lower lobe , possibly bronchitis/early bronchopneumonia. [facility] Referring Provider Line: [phone] SITE ID: [id number]
[2016-11-18] MEDS ORDERED: hydrALAZINE INJ 20 MG/ML VIAL IVP STA (21:11)
[2016-11-18] MEDS ORDERED: SODIUM CHLORIDE FLUSH 0.9% 10 ML SYRINGE IVP ONE (21:30)
[2016-11-18] MEDS ORDERED: cloNIDine 0.1 MG PATCH TOP ONE (21:52)
[2016-11-18] MEDS ORDERED: cloNIDine 0.1 MG PATCH TOP SCH (22:00)
[2016-11-19] MEDS ORDERED: LORazepam 2 MG/ML SYRINGE IVP SCH (00:45)
[2016-11-19] MEDS: NS W/20 MEQ KCL 1,000 ML IV SCH ×3 (00:57→08:32)
[2016-11-19] MEDS: DEXMEDETOMIDINE 400 MCG/100 ML 100 ML IV PRN ×2 (01:50→05:12)
[2016-11-19] MEDS: hydrALAZINE INJ 20 MG/ML VIAL IVP SCH ×4 (01:57→15:07)
[2016-11-19] MEDS: LORazepam 2 MG/ML SYRINGE IVP PRN ×2 (04:49→05:15)
[2016-11-19] MEDS: SODIUM CHLORIDE FLUSH 0.9% 10 ML SYRINGE IVP SCH ×2 (06:15→15:07)
[2016-11-19] MEDS: PANTOPRAZOLE 40 MG VIAL IVP SCH (06:16)
[2016-11-19 07:01] LABS: INR 1.2 (0.8-1.2); PT - PROTHROMBIN TIME 13.7 secs (9.9-12.6)
[2016-11-19 07:03] LABS: BASOPHILS # (AUTO) 0.1 10^3/uL (0.0-0.1); BASOPHILS % (AUTO) 1.2 %; EOSINOPHILS # (AUTO) 0.1 10^3/uL (0.0-0.7); EOSINOPHILS % (AUTO) 2.1 %; HCT - HEMATOCRIT 48.4 % (42.0-52.0); HGB - HEMOGLOBIN 16.2 g/dL (14.0-18.0); LYMPHOCYTES # (AUTO) 1.2 10^3/uL (1.5-3.5); LYMPHOCYTES % (AUTO) 23.8 %; MEAN CORPUSCULAR HEMOGLOBIN 34.9 pg (27.0-31.0); MEAN CORPUSCULAR HGB CONC 33.5 g/dL (32.0-36.0); MONOCYTES # (AUTO) 0.7 10^3/uL (0.0-1.0); MONOCYTES % (AUTO) 14.1 %; NEUTROPHILS # (AUTO) 2.9 10^3/uL (1.5-6.6); NEUTROPHILS % (AUTO) 58.8 %; NUCLEATED RED BLOOD CELLS AUTO 0.2 /100WBC; RED BLOOD COUNT 4.65 10^6/uL (4.70-6.10); RED CELL DISTRIBUTION WIDTH 13.3 % (12.0-15.0)
[2016-11-19 07:16] LABS: ALBUMIN/GLOBULIN RATIO 0.8 (1.0-2.2); BILIRUBIN,TOTAL 2.3 mg/dL (0.2-1.0); BUN - BLOOD UREA NITROGEN < 5 mg/dL (6-20); CALCIUM 8.8 mg/dL (8.5-10.3); CARBON DIOXIDE - CO2 24 mmol/L (21-32); CHLORIDE 101 mmol/L (101-111); CREATININE 0.5 mg/dL (0.6-1.2); GFR - MDRD 190 (>89); GLUCOSE 120 mg/dL (70-100); MAGNESIUM 1.4 mg/dL (1.7-2.8); PHOSPHORUS 3.6 mg/dL (2.5-4.6); POTASSIUM 3.6 mmol/L (3.5-5.0); SODIUM 134 mmol/L (135-145); TOTAL PROTEIN 6.7 g/dL (6.7-8.2)
[2016-11-19] MEDS: POTASSIUM CHLORIDE 20 MEQ/15 ML UDC PO SCH (08:34)
[2016-11-19] MEDS ORDERED: MAGNESIUM SULFATE 2 GRAM 50 ML IV ONE (08:45)
[2016-11-19] MEDS: NICOTINE 21 MG PATCH TOP SCH (08:51)
[2016-11-19] MEDS: amLODIPine 5 MG TABLET PO SCH (08:52)
[2016-11-19] MEDS: METOPROLOL TARTRATE 25 MG TABLET PO SCH (08:52)
[2016-11-19] MEDS: POLYETHYLENE GLYCOL 3350 17 GM PACKET PO SCH (08:52)
[2016-11-19] MEDS: ENOXAPARIN 30 MG/0.3 ML SYRINGE SUBQ SCH (09:17)
[2016-11-19] MEDS: MULTIVITAMIN 10 ML, THIAMINE INJ 100 MG, FOLIC ACID INJ 1 MG in SODIUM CHLORIDE 0.9% 1,... IV SCH (09:34)
[2016-11-19] MEDS: levETIRAcetam INJ 500 MG in SODIUM CHLORIDE 0.9% 100ML 100 ML IV SCH (09:34)
[2016-11-19] MEDS: levETIRAcetam 250 MG TABLET PO SCH (09:40)
--- NOTE | 2016-11-19 11:03 | ADVANCE CARE PLANNING NOTE ---
Advance Care Planning - Code Status Code Status: Attempt Resuscitation
--- NOTE | 2016-11-19 15:04 | Discharge Plan ---
Discharge Plan Disposition: 01 Home, Self Care Condition: Good Diet: Regular Activity Restrictions: May return to work 11/26/16 Shower Restrictions: No Driving Restrictions: No Instruction Topics: Alcoholism, Alcoholism Get Help, Cirrhosis Additional Instructions or Follow Up instructions: You were admitted because of seizures and passing out. We strongly suspect that they were caused by alcohol abuse and alcohol withdrawal. They caused low potassium, low magnesium, alcoholic hepatitis. You have now been through the worst of the withdrawal and are still shakey and weak. You may return to work on 11/26/16 Since there is a very small risk of recurrent seizures, please follow through with seeing your primary care provider in the next 1-2 weeks. We have opted to not continue seizure medicine since you are thru the withdrawal. but is they come back, you will need medicine and will need to see a Neurologist in consult. Please refrain from using any alcohol. You have developed changes of cirrhosis on ultrasound. Those changes can go away if you avoid drinking alcohol completely. Please see a counsellor or go to AA to help you stay off drinking alcohol. Take a B12 and folate vitamin daily for the next 6 months. No Smoking: If you smoke, Please STOP! Call for help. Follow-up with: Socorro Ruggiero ARNP [Credentialed Staff Provider] -
[2016-11-19 15:06] VITALS: BP 122/83
--- NOTE | 2016-11-20 11:48 | DISCHARGE SUMMARY ---
DATE OF ADMISSION: 11/17/2016 DATE OF DISCHARGE: 11/19/2016 DISCHARGE DIAGNOSES: 1. Severe alcohol withdrawal, delirium. 2. Seizures due to alcohol withdrawal. 3. Electrolyte abnormality. 4. Alcoholic hepatitis. 5. Syncope. 6. Nicotine dependence, cigarettes, uncomplicated. 7. Hypertension. DISCHARGE MEDICATIONS: 1. Diclofenac 50 mg p.o. b.i.d. as needed. 2. Metoprolol tartrate 25 mg p.o. daily. 3. Omeprazole 20 mg p.o. daily. 4. Norvasc 10 mg p.o. daily. PRINCIPAL PROCEDURES: 1. Echocardiogram with ejection fraction greater than 70%, severe right ventricular enlargement, righ t ventricular systolic function severely impaired, ventricular septal wall is flattened, end diastole and systole which was consistent with right ventricular volume and pressure overload. Right ventricu lar hypertrophy. Moderate tricuspid regurgitation. Severely abnormal heart pressures. This was a very technically difficult exam due to the patient's increased agitation and annoyance as exam progressed . 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 2. Brain MRI. No abnormal acute intracranial pathology demonstrated. No evidence of infarction, hemor rhage, or space occupying mass lesion. No epileptogenic focus identified on this unenhanced brain MRI . 3. Carotid Dopplers with mild atheromatous plaquing but no significant stenosis. 4. Chest thorax CT angiogram negative for pulmonary embolism. 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 Mild bronchial wall thickening with minimal peribron chial air space disease left lower lobe compatible with possible bronchitis. HOSPITAL COURSE: He is a 36-year-old male who has alcohol abuse in history. He has been cutting down on drinking. He does have a history of fatty liver and elevated LFTs and he was cutting back possibly because he was warned to do so. It is not sure, but intimates that was a possibility. He presen jimmy as having 2 seizures and he came to the emergency room. Initially it was thought that they were f rom head trauma until the alcohol abuse became clear. The patient left AMA. However, he had another e pisode of seizure and came back in. When he presented the second time he was a little confused and po stictal, but no focal neurological deficits. MRI of the head was negative. Labs showed him to be hypo natremic, hypokalemic, with a mildly elevated random glucose at 124. Total bilirubin was 3.3, AST 145 , ALT 41. During the course of his stay he was started on Keppra. He was also given IV fluids and supplementati on to correct his sodium and his potassium. Because of the elevated liver enzymes, iron level was don e at 137, ferritin was high at 1909, hepatitis panel was nonreactive for A, B, and C. Ultrasound was done and showed him to have the fatty liver changes. No ascites. Probable cirrhosis. Drug screen show ed positive opioids, positive benzodiazepines, positive cannabinoids. As the first day progressed the patient became increasingly angrier and more agitated. He was increas ingly unsteady on his feet because of probable withdrawal. Nursing care became one-on-one as they att empted to voice coach him, cajole him, and keep him safe. By the evening hours he was swinging at the nurse s, screaming, and as such he was transferred to the ICU for alcohol withdrawal and put on a Precedex drip. He was actually able to wake up on the Precedex drip and occasionally ask, appropriately so, fo r water or have a conversation with the nurse or his . He was evaluated for his syncope. He had h ad an episode of syncope in between his seizures in the outpatient setting. Carotid dopplers were neg ative and the echocardiogram was as above. After a day in the ICU with the Precedex drip, the patient's blood pressure and vitals were stable. A s such, he was taken off the Precedex drip. He was alert, oriented, able to be prompted and cooperati ve. He was still a little unsteady on his feet and he walked with physical therapy. He at first held a walker and ambulated 40 feet with even steps. No sway. Focus and answered questions and followed cu es in a timely manner. We then put the walker aside and he was able to ambulate another 40 feet with the same even gait pattern. No loss of balance. He walked 160 feet to the stairs and practiced on sta irs using hand railings without fatigue or loss of balance. The who was accompanying him said pretty fisher felt comfortable taking him home. Because the patient presented with seizures in the face of alcohol withdrawal, we felt that he did no t need to go home on new seizure medication. There was a very low possibility that he has a focus chip t we are not aware of. In the outpatient setting, if he seizes again, he will need an EEG and Neurolo gy evaluation and be placed back on seizure medications. On the day of discharge sodium was 134, tota l bilirubin 2.3, AST 291, ALT 111. INR 1.2, white cell count 5, hemoglobin 16.2, platelets 121. On exam his temperature was 36.6, blood pressure 122/83, respirations 22 and unlabored and 94% on xavi m air. He was a very disheveled, long-haired, lanky, short statured middle aged man who looked much, much older than stated age with severe body odor. He took a shower before he left. His pace was slow and deliberate. No increased respiratory effort. He did have 1 rhonchi in the left mid lung field chip t cleared with a deep cough. Regular rate and rhythm. Abdomen benign with enlarged liver. Dry scaling skin on his legs, but no edema. He is asked to follow through with his primary care provider. Refrain from drinking any alcohol at al l, take B vitamins on a daily basis, do so for the next 6 months. I am asking him to please be releas ed from work and he can return to work on November 26 because of his weakness and fatigue and he will need time to recover. JOB #: [id number] EXT JOB #:[id number]
== END 2016-11-19 15:50 | disposition home or self-care (01) | DRG 897 ==
LOC: ED 01:47 → OBS 02:30 → OBSVTOIN 07:30 → MS3 14:08 → ICU 19:19
PROVIDERS: ADMIT Internal Medicine; ATTEND Specialist
DX: F10.231 Alcohol dependence with withdrawal delirium (principal); G40.509 Epileptic seizures related to external causes, not intractable, without status epilepticus; E87.1 Hypo-osmolality and hyponatremia; T51.0X1A Toxic effect of ethanol, accidental (unintentional), initial encounter; K70.10 Alcoholic hepatitis without ascites; R55 Syncope and collapse; E87.6 Hypokalemia; E86.0 Dehydration; E83.42 Hypomagnesemia; D69.59 Other secondary thrombocytopenia; F17.210 Nicotine dependence, cigarettes, uncomplicated; I10 Essential (primary) hypertension; R78.4 Finding of other drugs of addictive potential in blood; Z87.74 Personal history of (corrected) congenital malformations of heart and circulatory system
CPT/HCPCS: 36415; 70551; 71275; 76700; 80053; 80074; 80306; 82550; 82607; 82728; 82746; 83540; 83735; 84100; 84466; 85025; 85610; 87150; 93306; 93880; 96365; 99284; 99285

== ENCOUNTER 2016-11-26 12:51 | Outpatient (CLI) | payer MEDICAID ==
[2016-11-26 18:44] LABS: BASOPHILS # (AUTO) 0.1 10^3/uL (0.0-0.1); BASOPHILS % (AUTO) 0.9 %; EOSINOPHILS # (AUTO) 0.1 10^3/uL (0.0-0.7); EOSINOPHILS % (AUTO) 1.2 %; HCT - HEMATOCRIT 47.9 % (42.0-52.0); LYMPHOCYTES # (AUTO) 2.6 10^3/uL (1.5-3.5); LYMPHOCYTES % (AUTO) 23.9 %; MEAN CORPUSCULAR HEMOGLOBIN 34.8 pg (27.0-31.0); MEAN CORPUSCULAR HGB CONC 33.4 g/dL (32.0-36.0); MEAN CORPUSCULAR VOLUME 104.2 fL (80.0-94.0); MEAN PLATELET VOLUME 9.2 fL (7.4-11.4); MONOCYTES # (AUTO) 1.3 10^3/uL (0.0-1.0); MONOCYTES % (AUTO) 12.2 %; NEUTROPHILS # (AUTO) 6.7 10^3/uL (1.5-6.6); NEUTROPHILS % (AUTO) 61.8 %; NUCLEATED RED BLOOD CELLS AUTO 0.1 /100WBC; RED CELL DISTRIBUTION WIDTH 13.7 % (12.0-15.0); UNCORRECTED WHITE BLOOD COUNT 10.8 x10^3/uL; WHITE BLOOD COUNT 10.8 x10^3/uL (4.8-10.8)
[2016-11-26 19:07] LABS: ALBUMIN/GLOBULIN RATIO 0.9 (1.0-2.2); BUN - BLOOD UREA NITROGEN 5 mg/dL (6-20); CARBON DIOXIDE - CO2 25 mmol/L (21-32); CHLORIDE 102 mmol/L (101-111); CHOL/HDL RATIO 3.3 (<5.0); CHOLESTEROL 161 mg/dL; CREATININE 0.4 mg/dL (0.6-1.2); GFR - MDRD 246 (>89); GLUCOSE 91 mg/dL (70-100); HDL CHOLESTEROL 49 mg/dL; LDL/HDL RATIO 1.8 (<3.6); SODIUM 138 mmol/L (135-145); TOTAL PROTEIN 7.2 g/dL (6.7-8.2); TRIGLYCERIDES 116 mg/dL; VLDL CHOLESTEROL 23 mg/dL
[2016-11-26 20:13] LABS: HEMOGLOBIN A1C 0.49 g/dL
== END 2016-11-26 12:52 | disposition home or self-care (01) ==
LOC: LAB.F 12:51
PROVIDERS: ATTEND Nurse Practitioner Family
DX: I10 Essential (primary) hypertension (principal); F10.10 Alcohol abuse, uncomplicated; Z13.220 Encounter for screening for lipoid disorders; R73.9 Hyperglycemia, unspecified
CPT/HCPCS: 36415; 80053; 80061; 83036; 84443; 85025

== ENCOUNTER 2017-03-23 18:13 | Emergency (ER) | payer MEDICAID ==
[2017-03-23] MEDS ORDERED: FUROSEMIDE 40 MG/4 ML VIAL IVP STA (18:47)
--- NOTE | 2017-03-23 18:50 | ED Physician Documentation ---
History of Present Illness - Stated complaint Stated Complaint: BILAT LE SWELLING - Chief complaint Chief Complaint: Ext Problem - History obtained from History obtained from: Patient - History of Present Illness Timing: Other (36-year-old gentleman with history of alcoholism, extensive skin grafts, AND CONGENITAL HEART DEFECT S/P REPAIR, Who presents to the emergency department today with about 4 days of anasarca which is painful in the legs and scrotum but not above the waistline. There is some mild shortness of breath with it. He continues to drink but he has cut back recently. Of note he has a congenital heart defect status post surgical repair.) Review of Systems Ten Systems: 10 systems reviewed and negative Constitutional: reports: Sweats, Reviewed and negative Cardiac: denies: Chest pain / pressure, Palpitations Respiratory: reports: Dyspnea. denies: Cough GI: denies: Nausea, Vomiting PD PAST MEDICAL HISTORY - Past Medical History Cardiovascular: Hypertension, Valve disorder Respiratory: Asthma Neuro: None Endocrine/Autoimmune: None GI: None : None HEENT: None Psych: Anxiety Musculoskeletal: None Derm: None - Past Surgical History Past Surgical History: Yes Cardiovascular: Other Derm: Skin grafts - Present Medications Home Medications: Ambulatory Orders Medication Instructions Recorded Confirmed Metoprolol Tartrate 25 mg PO DAILY 10/31/16 03/23/17 Omeprazole 20 mg PO DAILY 10/31/16 03/23/17 Amlodipine Besylate [Norvasc] 10 mg PO DAILY #30 tablet 11/14/16 03/23/17 Furosemide [Lasix] 20 mg PO DAILY #5 tablet 03/23/17 Lorazepam [Ativan] 1 mg PO TID PRN #10 tablet 03/23/17 Potassium Chloride 10 meq PO DAILY #5 tablet.er 03/23/17 - Allergies Allergies/Adverse Reactions: Allergies Allergy/AdvReac Type Severity Reaction Status Date / Time amoxicillin [Amoxicillin] Allergy Intermediate Edema Verified 11/16/16 20:40 Penicillins Allergy Intermediate Rash Verified 11/16/16 20:40 shellfish derived Allergy Intermediate Respiratory Verified 11/16/16 20:40 - Social History Does the pt smoke?: Yes Smoking Status: Current every day smoker Does the pt drink ETOH?: Yes Does the pt have substance abuse?: Yes - Family History Family history: reports: Non contributory - Immunizations Immunizations are current?: No - POLST Patient has POLST: No POLST Status: Full Code PD ED PE NORMAL - Vitals Vital signs reviewed: Yes - General General: Alert and oriented X 3, No acute distress - HEENT HEENT: PERRL, EOMI - Neck Neck: Supple, no meningeal sign, No bony TTP - Cardiac Cardiac: RRR, No murmur - Respiratory Respiratory: No respiratory distress, Clear bilaterally - Abdomen Abdomen: Normal bowel sounds, Soft, Non tender, Other (no fluid wave) - Extremities Extremities: Other (He does have anasarca of the lower extremities with moderate pedal edema and scrotal edema and foreskin edema without tenderness.) - Neuro Neuro: Alert and oriented X 3, Normal speech - Psych Psych: Normal mood, Normal affect Results - Vitals Vitals: Vital Signs - 24 hr 03/23/17 03/23/17 18:27 19:36 Temperature 36.5 C Heart Rate 83 74 Respiratory 20 14 Rate Blood Pressure 129/80 123/86 H O2 Saturation 98 97 Oxygen O2 Source Room air - EKG (time done) 1854 Rate: Rate (enter#) (82) Rhythm: NSR (with PVC) Intervals: RBBB (incomplete) Ischemia: Q waves (inferior) Computer interpretation: Agree with computer - Labs Labs: Laboratory Tests 03/23/17 03/23/17 03/23/17 19:00 19:00 19:00 WBC 6.9 RBC 4.85 Hgb 16.4 Hct 49.0 MCV 101.0 H MCH 33.9 H MCHC 33.6 RDW 14.7 Plt Count 146 MPV 9.2 Neut # 4.7 Lymph # 1.4 L [place] # 0.7 Eos # 0.1 Baso # 0.1 Absolute Nucleated RBC 0.00 Nucleated RBC % 0.0 PT 13.2 H INR 1.2 Sodium 135 Potassium 3.9 Chloride 95 L Carbon Dioxide 26 Anion Gap 14.0 H BUN 6 Creatinine 0.4 L Estimated GFR (MDRD) 246 Glucose 97 Calcium 8.9 Total Bilirubin 2.6 H AST 176 H ALT 48 Alkaline Phosphatase 217 H B-Natriuretic Peptide Total Protein 7.8 Albumin 3.4 Globulin 4.4 H Albumin/Globulin Ratio 0.8 L Lipase 65 H Ethyl Alcohol 171.8 03/23/17 19:00 WBC RBC Hgb Hct MCV MCH MCHC RDW Plt Count MPV Neut # Lymph # [place] # Eos # Baso # Absolute Nucleated RBC Nucleated RBC % PT INR Sodium Potassium Chloride Carbon Dioxide Anion Gap BUN Creatinine Estimated GFR (MDRD) Glucose Calcium Total Bilirubin AST ALT Alkaline Phosphatase B-Natriuretic Peptide 534 H Total Protein Albumin Globulin Albumin/Globulin Ratio Lipase Ethyl Alcohol - Rads (name of study) 2V CHEST Radiology: EMP read contemporaneously (Cardiomegaly with mild edema secondary to CHF) PD MEDICAL DECISION MAKING - ED course Complexity details: reviewed old records (Echocardiogram from October of this year was reviewed, he had an EF of 70% with severe right ventricular enlargement and severe right ventricular systolic function impairment with moderate tricuspid regurgitation and severely abnormal right-sided heart pressures with the right ventricular systolic pressure at rest being 124 mmHg.) ED course: 36-year-old gentleman with anasarca below the waist which is likely due to a combination of cirrhosis and congenital heart defect with high right-sided heart pressures. Despite his chest x-ray he is not crackly on examination. He was administered Lasix IV here and oral potassium. Labs are as shown. He was counseled at length that he needs to quit drinking and follow-up with a reliability specialist. Departure - Departure Disposition: Home, Self Care Clinical Impression: Alcohol abuse, Right-sided heart failure Cirrhosis Qualifiers: Hepatic cirrhosis type: alcoholic cirrhosis Ascites presence: without ascites Qualified Code(s): K70.30 - Alcoholic cirrhosis of liver without ascites Condition: Good Record reviewed to determine appropriate education?: Yes Instructions: Cirrhosis Liver Dc Follow-Up: Ximena Renee MD [Provider Admit Priv/Credential] - (She visits the hospital here once a week, call them and let them know that she would like to see her in [place]. Call on Saturday.) Prescriptions: Furosemide [Lasix] 20 mg PO DAILY #5 tablet Lorazepam [Ativan] 1 mg PO TID PRN #10 tablet PRN Reason: Anxiety Potassium Chloride 10 meq PO DAILY #5 tablet.er Comments: It is imperative to stop drinking alcohol as discussed. The Ativan/Lorazepam will help with any anxiety or shakes you will have with the alcohol withdrawal process. Call the cardiology office listed on this form for follow-up. Return if worse.
[2017-03-23 19:07] LABS: BASOPHILS # (AUTO) 0.1 10^3/uL (0.0-0.1); EOSINOPHILS # (AUTO) 0.1 10^3/uL (0.0-0.7); EOSINOPHILS % (AUTO) 0.8 %; HGB - HEMOGLOBIN 16.4 g/dL (14.0-18.0); LYMPHOCYTES # (AUTO) 1.4 10^3/uL (1.5-3.5); MEAN CORPUSCULAR HEMOGLOBIN 33.9 pg (27.0-31.0); MEAN CORPUSCULAR HGB CONC 33.6 g/dL (32.0-36.0); MEAN PLATELET VOLUME 9.2 fL (7.4-11.4); MONOCYTES # (AUTO) 0.7 10^3/uL (0.0-1.0); MONOCYTES % (AUTO) 10.3 %; NEUTROPHILS # (AUTO) 4.7 10^3/uL (1.5-6.6); NEUTROPHILS % (AUTO) 67.9 %; RED BLOOD COUNT 4.85 10^6/uL (4.70-6.10); RED CELL DISTRIBUTION WIDTH 14.7 % (12.0-15.0); UNCORRECTED WHITE BLOOD COUNT 6.9 x10^3/uL; WHITE BLOOD COUNT 6.9 x10^3/uL (4.8-10.8)
[2017-03-23 19:17] LABS: INR 1.2 (0.8-1.2); PT - PROTHROMBIN TIME 13.2 secs (9.9-12.6)
[2017-03-23 19:20] LABS: ALBUMIN/GLOBULIN RATIO 0.8 (1.0-2.2); BILIRUBIN,TOTAL 2.6 mg/dL (0.2-1.0); CALCIUM 8.9 mg/dL (8.5-10.3); CREATININE 0.4 mg/dL (0.6-1.2); POTASSIUM 3.9 mmol/L (3.5-5.0); TOTAL PROTEIN 7.8 g/dL (6.7-8.2)
--- NOTE | 2017-03-23 19:21 | XRAY Preliminary Report ---
Exam: XR CHEST 2 VIEW PA/LAT IMPRESSION: 1. There is cardiomegaly. 2. There is perihilar reticular opacity with interlobular septal thickening. There is thickening of t he fissures. Findings are suspicious for lung edema secondary to heart failure. 3. There is no pneumothorax. [facility] SITE ID: [id number]
--- NOTE | 2017-03-23 19:23 | XRAY Report ---
EXAM: CHEST RADIOGRAPHY EXAM DATE: 03/23/2017 07:07 PM. CLINICAL HISTORY: Dyspnea, fluid overload. COMPARISON: 12/30/2015. TECHNIQUE: 2 views. FINDINGS: Lungs/Pleura: There is perihilar reticular opacity. There is interlobular septal thickening. No evide nce of lobar infiltrate. No pneumothorax. Mediastinum: There is cardiomegaly. Patient has undergone median sternotomy. Other: None. IMPRESSION: 1. There is cardiomegaly. 2. There is perihilar reticular opacity with interlobular septal thickening. There is thickening of t he fissures. Findings are suspicious for lung edema secondary to heart failure. 3. There is no pneumothorax. [facility] Referring Provider Line: [phone] SITE ID: [id number]
[2017-03-23] MEDS ORDERED: FUROSEMIDE 40 MG/4 ML VIAL ONE (19:25)
[2017-03-23 19:37] VITALS: BP 123/86
[2017-03-23] MEDS ORDERED: POTASSIUM CHLORIDE 20 MEQ TABLET PO STA (19:49)
[2017-03-23] MEDS ORDERED: POTASSIUM CHLORIDE 20 MEQ TABLET PO ONE (20:01)
== END 2017-03-23 20:04 | disposition home or self-care (01) ==
LOC: ED 18:13
DX: F10.10 Alcohol abuse, uncomplicated (principal); I50.810 Right heart failure, unspecified; K70.30 Alcoholic cirrhosis of liver without ascites; I45.10 Unspecified right bundle-branch block; I10 Essential (primary) hypertension; F17.200 Nicotine dependence, unspecified, uncomplicated; Z87.74 Personal history of (corrected) congenital malformations of heart and circulatory system
CPT/HCPCS: 36415; 71020; 80053; 80320; 83690; 83880; 85025; 85610; 93005; 96374; 99283; 99284; A9270

== ENCOUNTER 2017-04-11 10:43 | Outpatient (CLI) | payer MEDICAID | END 2017-04-11 10:44 | disposition home or self-care (01) | LOC: LAB.F 10:43 | PROVIDERS: ATTEND Nurse Practitioner Family | DX: R60.1 Generalized edema (principal) | CPT/HCPCS: 36415; 84132 ==

== ENCOUNTER 2017-04-12 14:06 | Outpatient (CLI) | payer MEDICAID ==
[2017-04-12] MEDS ORDERED: IOPAMIDOL-300 100 ML VIAL ONE (14:18)
[2017-04-12] MEDS ORDERED: IOPAMIDOL-300 50 ML VIAL ONE (14:18)
[2017-04-12] MEDS ORDERED: IOPAMIDOL-300 100 ML VIAL IVP ONE (14:43)
[2017-04-12] MEDS ORDERED: IOPAMIDOL-300 50 ML VIAL PO ONE (14:43)
--- NOTE | 2017-04-12 22:09 | CT Preliminary Report ---
Exam: CT ABDOMEN W/ IMPRESSION: 1. Mild fatty infiltration and questionable subtle nodularity to the hepatic contour raising suspicio n for early chronic liver disease. Given evidence of congenital heart disease (incompletely imaged on this study) congestive hepatopathy could be considered as cause. Correlation with clinical results s uggested. 2. Trace right effusion and perihepatic free fluid. [facility] SITE ID: [id number]
--- NOTE | 2017-04-12 22:38 | CT Report ---
EXAM: CT ABDOMEN EXAM DATE: 04/12/2017 04:42 PM. CLINICAL HISTORY: Elevated liver enzymes. COMPARISON: None. TECHNIQUE: Routine helical CT imaging was performed through the abdomen. IV contrast: Yes Enteric co ntrast: Yes Reconstruction: Coronal and sagittal. In accordance with CT protocol optimization, one or more of the following dose reduction techniques w ere utilized for this exam: automated exposure control, adjustment of mA and/or KV based on patient s ize, or use of iterative reconstructive technique. FINDINGS: Lung Bases: Heart incompletely imaged on this study but there is evidence of congenital heart disease , incompletely characterized on this exam. The pulmonary veins drain into the right atrium and the la rger muscle ventricle is also on the right. IVC appears to drain into the left atrium and pulmonary a rteries probably arise off the smaller left ventricle. There may have been previous heart surgery. Liver: Solid nodularity to the contour questioned and mild fatty infiltration. No masses or vascular thrombosis. Gallbladder/Bile Ducts: Unremarkable. Spleen: Normal. Pancreas: Normal. Adrenal Glands: Normal. Kidneys: Normal. No masses or hydronephrosis. Peritoneal Cavity/Bowel: Trace perihepatic free fluid. Colonic diverticulosis. Bowel otherwise appear s unremarkable. Pelvis not included on study. Vasculature: No aneurysms or other significant abnormality. Bones: No significant abnormality with incidental note of an L1 vertebral body hemangioma. Other: None. IMPRESSION: 1. Mild fatty infiltration and questionable subtle nodularity to the hepatic contour raising suspicio n for early chronic liver disease. Given evidence of congenital heart disease (incompletely imaged on this study and presumably repaired) congestive hepatopathy could be considered as cause. Correlation with clinical results suggested. 2. Trace right effusion and trace perihepatic free fluid. [facility] Referring Provider Line: [phone] SITE ID: [id number]
== END 2017-04-12 14:07 | disposition home or self-care (01) ==
LOC: DI 14:06
PROVIDERS: ATTEND Nurse Practitioner Family
DX: K76.0 Fatty (change of) liver, not elsewhere classified (principal)
CPT/HCPCS: 74160; Q9967